=== PATIENT | male | born 1980 | race Caucasian/White ===

== ENCOUNTER 2022-05-26 09:55 | Emergency (ER) | payer SELFPAY ==
[~2022-05-26] VITALS: Ht 172.7 cm; Wt 90.7 kg
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
[2022-05-26] MEDS ORDERED: LIDOCAINE/EPI 2% 1:100000 20 ML VIAL INJ ONE ×2 (10:12→10:20)
[2022-05-26 10:14] VITALS: BP 162/96
[2022-05-26] MEDS ORDERED: NACL 0.9% 1,000 ML IV ONE (10:45)
[2022-05-26 11:39] LABS: BASOPHILS % (AUTO) 0.4 % (0.0-2.0); EOSINOPHILS # (AUTO) 0.1 K/uL (0-0.4); EOSINOPHILS % (AUTO) 0.7 % (0.0-4.0); HEMATOCRIT 41.1 % (36-52); HEMOGLOBIN 13.9 g/dL (12.0-18.0); LYMPHOCYTES # (AUTO) 1.8 K/uL (2.0-11.5); LYMPHOCYTES % (AUTO) 15.1 % (20.5-51.1); MEAN CORPUSCULAR HEMOGLOBIN 29 pg (27-31); MEAN CORPUSCULAR HGB CONC 34 g/dL (33-37); MEAN CORPUSCULAR VOLUME 85.7 fL (80-94); MONOCYTES # (AUTO) 1.2 K/uL (0.8-1.0); MONOCYTES % (AUTO) 10.2 % (1.7-9.3); NEUTROPHILS # (AUTO) 8.6 K/uL (1.8-7.7); NEUTROPHILS % (AUTO) 73.6 % (42.2-75.2); PLATELET COUNT (AUTO) 298 K/uL (140-450); RED BLOOD CELL COUNT(AUTO) 4.79 MIL/uL (4.20-6.10); RED CELL DISTRIBUTION WIDTH 13.3 % (11.6-13.7); WHITE BLOOD COUNT (AUTO) 11.6 K/uL (4.8-10.8)
[2022-05-26 11:57] LABS: ANION GAP 15.7 (8-16); CARBON DIOXIDE 23.8 mmol/L (21-32); CREATININE 1.1 mg/dL (0.6-1.3); POTASSIUM 3.5 mmol/L (3.5-5.1)
[2022-05-26 11:58] LABS: PROTHROMBIN TIME 10.3 secs (10.8-13.4)
[2022-05-26 13:44] VITALS: BP 162/96
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
== END 2022-05-26 13:45 ==
LOC: MED 09:55
DX: S01.81XA Laceration without foreign body of other part of head, initial encounter (principal); Y04.8XXA Assault by other bodily force, initial encounter; Y93.89 Activity, other specified; Y92.89 Other specified places as the place of occurrence of the external cause; Y99.8 Other external cause status
CPT/HCPCS: 12013; 36415; 70450; 80048; 85025; 85610; 85730; 86886; 86900; 86901; 96360; 99291; J2001; J7030

== ENCOUNTER 2022-06-04 15:07 | Emergency (ER) | payer SELFPAY ==
[~2022-06-04] VITALS: Ht 182.9 cm; Wt 108.9 kg
[2022-06-04 15:20] VITALS: BP 125/80
--- NOTE | 2022-06-04 16:00 | NUR ---
Patient discharged with v/s stable. Written and verbal after care instructions given and explained. Patient verbalized understanding. Ambulatory with steady gait. All questions addressed prior to discharge. Advised to follow up with PMD.
== END 2022-06-04 16:00 | disposition home or self-care (01) ==
LOC: MED 15:07
DX: S01.81XD Laceration without foreign body of other part of head, subsequent encounter (principal); Z48.02 Encounter for removal of sutures; X58.XXXD Exposure to other specified factors, subsequent encounter
CPT/HCPCS: 99281